=== PATIENT | male | born 1940 | race Caucasian/White ===

== ENCOUNTER → 2016-06-19 | Outpatient (CLI) | payer OTHER ==
[~2016-06-19] MED LIST: CHOLTAB3 PO; GLC500 PO; IBUP-1050 PO
[2016-06-19 13:14] LABS: ESTIMATED AVERAGE GLUCOSE 126 mg/dl; HA1C FLAG Normal (Normal)
[2016-06-19 13:15] LABS: ALT/SGPT 26 U/L (12-78); BLOOD UREA NITROGEN 19 mg/dl (7-18); BUN/CREATININE RATIO 17.2 (10-20); CALCIUM 9.2 mg/dl (8.5-10.1); CARBON DIOXIDE 28 mmol/L (21-32); CHLORIDE 106 mmol/L (98-107); GLUCOSE 128 mg/dl (70-99); POTASSIUM 4.1 mmol/L (3.5-5.1); SODIUM 141 mmol/L (136-145)
[2016-06-19 13:21] LABS: ALB/GLOB RATIO 1.3 (0.9-2); ALKALINE PHOSPHATASE 44 U/L (45-117); AST/SGOT 16 U/L (15-37); CHOLESTEROL 176 mg/dl (0-200); CHOLESTEROL/HDL RATIO 3.5; HDL CHOLESTEROL 51 mg/dl; LDL CHOLESTEROL CALCULATED 100 mg/dl; TRIGLYCERIDES 124 mg/dl (0-150); VERY LOW DENSITY LIPOPROT CALC 25 mg/dl
== END | disposition home or self-care (01) ==
LOC: C.LABPVFM 09:52
PROVIDERS: ATTEND Family Medicine
DX: E78.00 Pure hypercholesterolemia, unspecified (principal); E11.9 Type 2 diabetes mellitus without complications; M79.603 Pain in arm, unspecified

== ENCOUNTER → 2016-06-25 | Outpatient (CLI) | payer OTHER ==
[2016-06-25 18:09] LABS: RATIO 12.1 mcg/mg (0-30.0)
== END | disposition home or self-care (01) ==
LOC: C.LABPVFM 09:07
PROVIDERS: ATTEND Family Medicine
DX: M79.603 Pain in arm, unspecified (principal)

== ENCOUNTER → 2016-07-18 | Outpatient (CLI) | payer OTHER ==
--- NOTE | 2016-07-18 11:08 | DIAGNOSTIC IMAGING REPORT ---
RIGHT FOOT MIN 3 VIEWS ROUTINE CLINICAL HISTORY: ACUTE RT ANKLE PAIN, Right pain COMPARISON: None. DISCUSSION: The bones and joint spaces appear intact. There is no evidence of fracture, dislocation or bony disease. There is no evidence for soft tissue swelling. IMPRESSION: Negative study. Electronically signed by: Caleb Jay M.D. 07/18/2016 11:07 AM Dictated Date/Time: 07/18/2016 11:05 AM
--- NOTE | 2016-07-18 11:10 | DIAGNOSTIC IMAGING REPORT ---
RIGHT ANKLE 3 VIEWS CLINICAL HISTORY: Twisting injury. FINDINGS: 3 views of the right ankle are obtained. No prior studies are available for comparison at the time of dictation. The skeletal structures are osteopenic. No fracture is seen. The ankle mortise is intact. There is a large plantar calcaneal enthesophyte. Degenerative spurring is seen along the dorsal aspect of the tarsal bones. Soft tissue swelling is present around the ankle. No large joint effusion is identified. There is advanced atherosclerotic calcification of the regional arteries. IMPRESSION: Soft tissue swelling with no radiographic evidence of right ankle fracture. Electronically signed by: Wojciech Freed M.D. 07/18/2016 11:09 AM Dictated Date/Time: 07/18/2016 11:08 AM
== END | disposition home or self-care (01) ==
LOC: C.RADPV 10:40
PROVIDERS: ATTEND Nurse Practitioner
DX: M25.571 Pain in right ankle and joints of right foot (principal)

== ENCOUNTER → 2016-08-22 | Outpatient (CLI) | payer OTHER ==
[2016-08-22 17:46] LABS: BASO % 0.4 %; BASO ABS # 0.03 K/uL (0-0.2); COMPLETE YES; EOS % 1.3 %; HEMATOCRIT 41.8 % (42-52); IG% 0.3 %; LYMPH % 8.9 %; LYMPH ABS # 0.61 K/uL (1.2-3.4); MEAN CELL VOLUME 89.9 fL (80-100); MEAN CORPUSCULAR HEMOGLOBIN 32.3 pg (25-34); MEAN CORPUSCULAR HGB CONC 35.9 g/dl (32-36); MEAN PLATELET VOLUME 11.9 fL (7.4-10.4); MONO % 11.3 %; NEUT % 77.8 %; PLATELET COUNT 131 K/uL (130-400); RED BLOOD COUNT 4.65 M/uL (4.7-6.1); WHITE BLOOD COUNT 6.84 K/uL (4.8-10.8)
[2016-08-22 19:27] LABS: LYME DISEASE AB IGG NEG (NEG)
[2016-08-22 19:39] LABS: LYME DISEASE AB IGM POS (NEG)
[2016-08-28 16:05] LABS: 18KDIGG BAND NONREACTIVE (NONREACTIVE); 23KDIGG BAND NONREACTIVE (NONREACTIVE); 23KDIGM BAND REACTIVE (NONREACTIVE); 28KDIGG BAND NONREACTIVE (NONREACTIVE); 30KDIGG BAND NONREACTIVE (NONREACTIVE); 39KDIGG BAND NONREACTIVE (NONREACTIVE); 39KDIGM BAND NONREACTIVE (NONREACTIVE); 41KDIGG BAND REACTIVE (NONREACTIVE); 41KDIGM BAND NONREACTIVE (NONREACTIVE); 45KDIGG BAND REACTIVE (NONREACTIVE); 58KDIGG BAND NONREACTIVE (NONREACTIVE); 66KDIGG BAND REACTIVE (NONREACTIVE); 93KDIGG BAND NONREACTIVE (NONREACTIVE)
== END | disposition home or self-care (01) ==
LOC: C.LABPVFM 16:02
PROVIDERS: ATTEND Nurse Practitioner Family
DX: T14.8 Other injury of unspecified body region (principal); W57.XXXA Bitten or stung by nonvenomous insect and other nonvenomous arthropods, initial encounter

== ENCOUNTER → 2016-12-24 | Outpatient (CLI) | payer OTHER ==
[2016-12-24 13:20] LABS: ALT/SGPT 27 U/L (12-78); BLOOD UREA NITROGEN 21 mg/dl (7-18); BUN/CREATININE RATIO 20.2 (10-20); CALCIUM 8.8 mg/dl (8.5-10.1); CARBON DIOXIDE 26 mmol/L (21-32); CHLORIDE 103 mmol/L (98-107); CHOLESTEROL 171 mg/dl (0-200); CREATININE 1.06 mg/dl (0.60-1.40); ESTIMATED AVERAGE GLUCOSE 131 mg/dl; GLUCOSE 140 mg/dl (70-99); HA1C FLAG Normal (Normal); POTASSIUM 4.1 mmol/L (3.5-5.1); SODIUM 139 mmol/L (136-145)
[2016-12-24 13:23] LABS: ALB/GLOB RATIO 1.2 (0.9-2); ALKALINE PHOSPHATASE 46 U/L (45-117); AST/SGOT 17 U/L (15-37); CHOLESTEROL/HDL RATIO 3.4; HDL CHOLESTEROL 50 mg/dl; LDL CHOLESTEROL CALCULATED 99 mg/dl; TRIGLYCERIDES 110 mg/dl (0-150); VERY LOW DENSITY LIPOPROT CALC 22 mg/dl
== END | disposition home or self-care (01) ==
LOC: C.LABPVFM 09:08
PROVIDERS: ATTEND Family Medicine
DX: C61 Malignant neoplasm of prostate (principal); E11.9 Type 2 diabetes mellitus without complications; E78.00 Pure hypercholesterolemia, unspecified

== ENCOUNTER → 2017-07-01 | Outpatient (CLI) | payer OTHER ==
[2017-07-01 14:12] LABS: ALBUMIN 3.7 gm/dl (3.4-5.0); ALKALINE PHOSPHATASE 45 U/L (45-117); ALT/SGPT 26 U/L (12-78); AST/SGOT 18 U/L (15-37); BLOOD UREA NITROGEN 17 mg/dl (7-18); CALCIUM 8.6 mg/dl (8.5-10.1); CARBON DIOXIDE 27 mmol/L (21-32); CHOLESTEROL 167 mg/dl (0-200); CREATININE 0.98 mg/dl (0.60-1.40); GLUCOSE 117 mg/dl (70-99); LDL CHOLESTEROL CALCULATED 103 mg/dl; POTASSIUM 3.9 mmol/L (3.5-5.1); SODIUM 138 mmol/L (136-145)
== END | disposition home or self-care (01) ==
LOC: C.LABPVFM 09:44
PROVIDERS: ATTEND Family Medicine
DX: E11.9 Type 2 diabetes mellitus without complications (principal); E78.00 Pure hypercholesterolemia, unspecified; M25.519 Pain in unspecified shoulder; R03.0 Elevated blood-pressure reading, without diagnosis of hypertension

== ENCOUNTER → 2017-09-26 | Outpatient (CLI) | payer OTHER ==
--- NOTE | 2017-09-26 15:17 | DIAGNOSTIC IMAGING REPORT ---
CERVICAL SPINE 2 OR 3 VIEWS CLINICAL HISTORY: Neck pain following injury. COMPARISON STUDY: No previous studies for comparison. FINDINGS: Alignment of the cervical spine is anatomic. Vertebral body heights are maintained. No fracture or osseous lesion is noted. There is moderate disc space narrowing at C6-C7. There is mild to moderate disc space narrowing at C5-C6. Moderate multilevel facet arthrosis is noted. There is anterior osteophytosis at several levels. IMPRESSION: 1. No acute cervical spine fracture or subluxation. 2. Moderate multilevel degenerative disc disease and facet arthrosis within the cervical spine. Electronically signed by: Davon Sosa M.D. 09/26/2017 3:16 PM Dictated Date/Time: 09/26/2017 3:14 PM
== END | disposition home or self-care (01) ==
LOC: C.RADPV 14:35
PROVIDERS: ATTEND Family Medicine
DX: M50.30 Other cervical disc degeneration, unspecified cervical region (principal)

== ENCOUNTER 2021-05-02 11:50 | Inpatient (IN) ==
[2021-05-02] MEDS ORDERED: NITROGLYCERIN 2% OINTMENT 30GM TUBE EXT STA (12:16)
[2021-05-02] MEDS ORDERED: ASPIRIN CHEW 324 MG PO STA (12:16)
--- NOTE | 2021-05-02 12:21 | Emergency Department Note ---
Impression & Plan Precordial chest pain, Exertional chest pain, SOB (shortness of breath) ED Provider Note NAME: TEQUILA HICKMAN AGE: 81 SEX: M : 1940 ARRIVES VIA: Walk-In INFORMANT: [Patient] ED PROVIDER(S): [Wojciech Gant MD] CHIEF COMPLAINT: Chest pain HISTORY OF PRESENT ILLNESS: The patient is an 81-year-old male with no known coronary disease. The patient presents with a week or so of exertional chest discomfort and some exertional dyspnea. His symptoms get better with rest. Yesterday he had a 5 to 10-minute episode that was better when he rested. Today, he began having some chest discomfort with exertion but it has not completely gone away. The pain has been with him all morning. The pain is a 2 or 3 on a scale of 1-10. There has been no sweating, no nausea. No cough or cold or congestion. Patient went to [facility], he was referred to the ED because of his complaints. REVIEW OF SYSTEMS: See HPI for pertinent positives and negatives. A total of ten systems were reviewed and were otherwise negative. PMHx/PSHx: See Below SOCIAL HISTORY: See Below. PHYSICAL EXAM: GENERAL: Patient is in no acute distress. HEENT: No acute trauma, normocephalic atraumatic, mucous membranes moist, no nasal congestion, no scleral icterus. NECK: No stridor, no adenopathy, no meningismus, trachea is midline. LUNGS: Clear to auscultation bilaterally, no wheeze, no rhonchi, breath sounds equal. HEART: Without murmurs gallops or rubs, regular rate and rhythm. ABDOMEN: Soft, nontender, bowel sounds positive, no hernias, no peritonitis. EXTREMITIES: No cyanosis, mild bilateral pedal edema, full range of motion of all the joints without pain or difficulty, no signs for acute trauma. NEUROLOGIC: Oriented x 3, no acute motor or sensory deficits, no focal weakness. SKIN: No rash, no jaundice, no diaphoresis. DIFFERENTIAL DIAGNOSIS: Cardiac ischemia, aortic dissection, pulmonary embolism, pneumothorax, pneumon ia, pericarditis, myocarditis, esophageal rupture, GERD, cholecystitis, pancreatitis, musculoskeletal, as well as other pathologies. EMERGENCY DEPARTMENT COURSE/PROCEDURES: ECG: Indication was chest pain. ECG shows a normal sinus rhythm with a rate of 70. There is some baseline artifact. No ST elevation, no PVCs. The QTc is 406. Continuous Cardiac Monitoring: An order was placed for continuous cardiac monitoring. The monitor shows a rate of 71 with normal sinus rhythm. MEDICAL DECISION MAKING: There is no leukocytosis or concerning anemia. There is a normal platelet count. No coagulopathy. No significant electrolyte abnormality or kidney failure. No concerning liver enzyme elevation. No evidence for pancreatitis. Covid testing returned negative. Chest x-ray did not show mediastinal widening, pneumonia or pneumothorax. ECG shows a normal sinus rhythm, no obvious ischemia. Cardiac enzyme testing x1 is not consistent with acute cardiac injury. The patient presents with some exertional chest pain. His pain was a bit worse today as it would not resolve with rest. The patient was given nitroglycerin paste, oral aspirin. He is now pain-free. The patient presents with exertional chest discomfort. He requires further cardiac work-up. I did speak with the patient and case management. The on-call hospitalist was consulted. Past Med/Surg History Medical History Arthritis of both ankles Chronic back pain Degenerative disc disease Diabetes mellitus, type 2 Difficult airway for intubation used glidescope to intubate patient while in [facility]. (~2009) advised to bring letter. GERD (gastroesophageal reflux disease) occasionally History of brachytherapy Osteoarthritis Prostate cancer Spinal stenosis Unsteady gait Vertigo Surgical History History of colonoscopy History of hernia repair left inguinal History of left cataract surgery History of prostate surgery cryo ablation [facility] History of tonsillectomy Family History Father Myocardial infarction Other No family history of adverse response to anesthesia Denies family history of Ovarian cancer Prostate cancer Breast cancer Colorectal cancer Social History Smoking Status: Never smoker Second Hand Exposure: No; Hx Alcohol Use: No Hx Substance Use: No Preferred Language: Icelandic Communication Ability: Effective Brush Maker Machine Required: No Beliefs That Will Affect Care: None marital status: Current Living Situation: Spouse Feels Safe at Home: Yes Dental Care, Regularly: Yes Seatbelt Use: always Assistive Devices: Glasses Allergies Allergies Allergy/AdvReac Type Severity Reaction Status Date / Time Sulfa (Sulfonamide Allergy Intermediate Rash, Verified 05/02/21 14:51 Antibiotics) fever, sweat meloxicam AdvReac Intermediate swelling Verified 05/02/21 14:51 of limbs Home Meds Home Medications Medication Instructions Recorded Confirmed cholecalciferol (vitamin D3) 10 400 unit PO BID 12/15/19 05/02/21 mcg (400 unit) tablet (Vitamin D3) Previous Rx's Medication Instructions Recorded pantoprazole 20 mg tablet,delayed 20 mg PO DAILY 30 Days #30 tab 07/08/20 release metformin 500 mg tablet,extended 500 mg PO BID #180 tab 04/24/21 release 24 hr Results & Data (ED) Vital Signs Vital Signs - 24 hr 05/02/21 11:57 05/02/21 12:50 05/02/21 13:13 Temperature 36.7 C Temperature Source Temporal Artery Scan Pulse Rate 71 62 Pulse Rate from SpO2 Sensor 63 Respiratory Rate 18 14 Respiratory Effort / Characteristics Non-Labored Spontaneous Respiratory Depth Normal Respiratory Pattern Regular Blood Pressure 200/91 H Blood Pressure Mean 127 Pulse Oximetry 99 95 98 Oxygen Delivery Method Room Air Room Air Oxygen Flow Rate 0 Sepsis Recent Fever Within 48 Hours No Sepsis New/Unexplained Change in Mental Status No Sepsis Action Taken by Nursing No Action Required 05/02/21 13:15 05/02/21 13:25 05/02/21 13:30 Temperature Temperature Source Pulse Rate 61 64 61 Pulse Rate from SpO2 Sensor 60 64 62 Respiratory Rate 16 14 13 Respiratory Effort / Characteristics Respiratory Depth Respiratory Pattern Blood Pressure 166/87 H 166/87 H 159/80 H Blood Pressure Mean 113 113 106 Pulse Oximetry 98 98 97 Oxygen Delivery Method Oxygen Flow Rate Sepsis Recent Fever Within 48 Hours Sepsis New/Unexplained Change in Mental Status Sepsis Action Taken by Nursing 05/02/21 13:45 05/02/21 14:00 05/02/21 14:15 Temperature Temperature Source Pulse Rate 63 63 64 Pulse Rate from SpO2 Sensor 63 63 64 Respiratory Rate 13 17 4 L Respiratory Effort / Characteristics Respiratory Depth Respiratory Pattern Blood Pressure 183/85 H 165/85 H 169/88 H Blood Pressure Mean 117 111 115 Pulse Oximetry 97 97 96 Oxygen Delivery Method Oxygen Flow Rate Sepsis Recent Fever Within 48 Hours Sepsis New/Unexplained Change in Mental Status Sepsis Action Taken by Nursing 05/02/21 14:30 05/02/21 14:45 05/02/21 15:00 Temperature Temperature Source Pulse Rate 64 63 71 Pulse Rate from SpO2 Sensor 64 63 70 Respiratory Rate 17 20 13 Respiratory Effort / Characteristics Respiratory Depth Respiratory Pattern Blood Pressure 171/88 H 155/87 H 187/102 H Blood Pressure Mean 115 109 130 Pulse Oximetry 97 97 99 Oxygen Delivery Method Oxygen Flow Rate Sepsis Recent Fever Within 48 Hours Sepsis New/Unexplained Change in Mental Status Sepsis Action Taken by Nursing 05/02/21 15:15 05/02/21 15:30 05/02/21 15:45 Temperature Temperature Source Pulse Rate 74 69 62 Pulse Rate from SpO2 Sensor 74 71 64 Respiratory Rate 18 16 Respiratory Effort / Characteristics Respiratory Depth Respiratory Pattern Blood Pressure 187/99 H 127/72 135/74 Blood Pressure Mean 128 90 94 Pulse Oximetry 98 95 97 Oxygen Delivery Method Oxygen Flow Rate Sepsis Recent Fever Within 48 Hours Sepsis New/Unexplained Change in Mental Status Sepsis Action Taken by Nursing 05/02/21 16:00 05/02/21 16:15 05/02/21 16:30 Temperature Temperature Source Pulse Rate 62 62 61 Pulse Rate from SpO2 Sensor 65 Respiratory Rate 11 L 13 15 Respiratory Effort / Characteristics Respiratory Depth Respiratory Pattern Blood Pressure 141/72 H 137/70 146/70 H Blood Pressure Mean 95 92 95 Pulse Oximetry 97 Oxygen Delivery Method Oxygen Flow Rate Sepsis Recent Fever Within 48 Hours Sepsis New/Unexplained Change in Mental Status Sepsis Action Taken by Nursing 05/02/21 16:45 05/02/21 17:00 05/02/21 17:15 Temperature Temperature Source Pulse Rate 64 74 63 Pulse Rate from SpO2 Sensor 75 65 Respiratory Rate 20 20 10 L Respiratory Effort / Characteristics Respiratory Depth Respiratory Pattern Blood Pressure 139/91 169/90 H 147/76 H Blood Pressure Mean 107 116 99 Pulse Oximetry 97 97 Oxygen Delivery Method Oxygen Flow Rate Sepsis Recent Fever Within 48 Hours Sepsis New/Unexplained Change in Mental Status Sepsis Action Taken by Nursing 05/02/21 18:00 Temperature Temperature Source Pulse Rate Pulse Rate from SpO2 Sensor Respiratory Rate Respiratory Effort / Characteristics Respiratory Depth Respiratory Pattern Blood Pressure Blood Pressure Mean Pulse Oximetry Oxygen Delivery Method Room Air Oxygen Flow Rate Sepsis Recent Fever Within 48 Hours Sepsis New/Unexplained Change in Mental Status Sepsis Action Taken by [facility] Medications Current Medication List: was personally reviewed by me Laboratory Data Attestation: I reviewed the patient's lab results. Result diagrams: 05/02/21 12:50 05/02/21 12:50 Lab Results 05/02/21 05/02/21 05/02/21 Range/Units 12:50 12:50 12:50 WBC 9.14 (4.8-10.8) K/uL RBC 4.65 L (4.7-6.1) M/uL Hgb 15.1 (14.0-18.0) g/dL Hct 41.9 L (42-52) % MCV 90.1 (80-100) fL MCH 32.5 (25-34) pg MCHC 36.0 (32-36) g/dL RDW Std Deviation 42.0 (36.4-46.3) fL RDW Coeff of Nadiya 12.7 (11.5-14.5) % Plt Count 156 (130-400) K/uL MPV 10.9 H (7.4-10.4) fL Immature Gran % (Auto) 0.2 % Neut % (Auto) 86.6 % Lymph % (Auto) 7.4 % [place] % (Auto) 5.4 % Eos % (Auto) 0.3 % Baso % (Auto) 0.1 % Neut # (Auto) 7.91 H (1.4-6.5) K/uL Lymph # (Auto) 0.68 L (1.2-3.4) K/uL [place] # (Auto) 0.49 (0.11-0.59) K/uL Eos # (Auto) 0.03 (0-0.5) K/uL Baso # (Auto) 0.01 (0-0.2) K/uL Immature Gran # (Auto) 0.02 (0.00-0.02) K/uL PT 11.3 (9.0-12.0) Seconds INR 1.1 (0.9-1.1) APTT 27.3 (21.0-31.0) Seconds PTT Ratio 1.0 Sodium 138 (136-145) mmol/L Potassium 3.9 (3.5-5.1) mmol/L Chloride 103 (98-107) mmol/L Carbon Dioxide 26 (21-32) mmol/L Anion Gap 9 (3-11) BUN 22 (6-23) mg/dl Creatinine 0.96 (0.6-1.4) mg/dl Est Cr Clr Drug Dosing Not Reportable Est GFR ( Amer) 85.6 ml/min Est GFR (Non-Af Amer) 73.8 ml/min BUN/Creatinine Ratio 22.9 H (10-20) Glucose 160 H (70-99(Fasting)) mg/dl Calcium 9.2 (8.5-10.1) mg/dl Magnesium 2.0 (1.7-2.4) mg/dl Total Bilirubin 0.7 (0.2-1.0) mg/dl AST 17 (13-39) U/L ALT 19 (7-52) U/L Alkaline Phosphatase 44 (34-104) U/L Troponin I < 0.03 (0-0.04) ng/ml Total Protein 7.3 (6.0-8.3) gm/dl Albumin 4.7 (3.4-5.0) gm/dl Globulin 2.6 (2.5-4.0) gm/dl Albumin/Globulin Ratio 1.8 (0.9-2) Lipase 21 (11-82) U/L SARS-CoV-2, RNA, NAAT (NEGATIVE) 05/02/21 Range/Units 12:50 WBC (4.8-10.8) K/uL RBC (4.7-6.1) M/uL Hgb (14.0-18.0) g/dL Hct (42-52) % MCV (80-100) fL MCH (25-34) pg MCHC (32-36) g/dL RDW Std Deviation (36.4-46.3) fL RDW Coeff of Nadiya (11.5-14.5) % Plt Count (130-400) K/uL MPV (7.4-10.4) fL Immature Gran % (Auto) % Neut % (Auto) % Lymph % (Auto) % [place] % (Auto) % Eos % (Auto) % Baso % (Auto) % Neut # (Auto) (1.4-6.5) K/uL Lymph # (Auto) (1.2-3.4) K/uL [place] # (Auto) (0.11-0.59) K/uL Eos # (Auto) (0-0.5) K/uL Baso # (Auto) (0-0.2) K/uL Immature Gran # (Auto) (0.00-0.02) K/uL PT (9.0-12.0) Seconds INR (0.9-1.1) APTT (21.0-31.0) Seconds PTT Ratio Sodium (136-145) mmol/L Potassium (3.5-5.1) mmol/L Chloride (98-107) mmol/L Carbon Dioxide (21-32) mmol/L Anion Gap (3-11) BUN (6-23) mg/dl Creatinine (0.6-1.4) mg/dl Est Cr Clr Drug Dosing Est GFR ( Amer) ml/min Est GFR (Non-Af Amer) ml/min BUN/Creatinine Ratio (10-20) Glucose (70-99(Fasting)) mg/dl Calcium (8.5-10.1) mg/dl Magnesium (1.7-2.4) mg/dl Total Bilirubin (0.2-1.0) mg/dl AST (13-39) U/L ALT (7-52) U/L Alkaline Phosphatase (34-104) U/L Troponin I (0-0.04) ng/ml Total Protein (6.0-8.3) gm/dl Albumin (3.4-5.0) gm/dl Globulin (2.5-4.0) gm/dl Albumin/Globulin Ratio (0.9-2) Lipase (11-82) U/L SARS-CoV-2, RNA, NAAT NEGATIVE (NEGATIVE) Administered Medications Discontinued Medications Aspirin (Aspirin Chew 324 Mg) 324 mg PO NOW STA Stop: 05/02/21 12:17 Last Admin: 05/02/21 12:54 Dose: 324 mg Documented by: [id number] Metoprolol Tartrate (Metoprolol Tartrate 50 Mg Tab) 12.5 mg PO NOW STA Stop: 05/02/21 15:24 Last Admin: 05/02/21 17:11 Dose: 12.5 mg Documented by: [id number] Nitroglycerin (Nitroglycerin 2% Ointment 30gm Tube) 1 inch EXT NOW STA Stop: 05/02/21 12:17 Last Admin: 05/02/21 12:53 Dose: 1 inch Documented by: [id number] Nitroglycerin (Nitroglycerin Sl 0.4 Mg/Tab Tab) 0.4 mg SL NOW STA Stop: 05/02/21 15:09 Last Admin: 05/02/21 15:18 Dose: 0.4 mg Documented by: [id number] Imaging Data Radiologist's Impression: Chest X-Ray 05/02/21 12:16 XR chest 1V portable CLINICAL HISTORY: Atypical chest pain TECHNIQUE: Single frontal radiograph of the chest was obtained. Comparison: None available at the time of this dictation. FINDINGS: No lines and tubes are seen. The cardiomediastinal silhouette is normal. The lungs are clear. No evidence of pleural effusion or pneumothorax. IMPRESSION: No acute chest disease. ACT 112: Negative or not required by law. Electronically signed by: Leon Fernandez M.D. 05/02/2021 12:36 PM Discharge Plan Visit Data Chief Complaint: Chest Pain Stated Complaint: CHEST PAIN ED Provider: Wojciech Gant Discharge Problem: Precordial chest pain, Exertional chest pain, SOB (shortness of breath) Patient Disposition: Admitted As Inpatient Condition: Good Discharge Instructions Interventions: ED Discharge Assessment Last Done: 05/02/21 18:00 Forms Stand Alone Forms: [facility] [place] Prescriptions Prescriptions: No Action metformin 500 mg tablet extended release 24 hr 500 mg PO BID Qty: 180 RF: 1 pantoprazole 20 mg tablet,delayed release (DR/EC) 20 mg PO DAILY 30 Days Qty: 30 RF: 3 cholecalciferol (vitamin D3) [Vitamin D3] 10 mcg (400 unit) Tablet 400 unit PO BID RF: 0 Referrals Referrals: Rosita Lind MD [Primary Care Provider] -
--- NOTE | 2021-05-02 12:37 | XRay Report ---
XR chest 1V portable CLINICAL HISTORY: Atypical chest pain TECHNIQUE: Single frontal radiograph of the chest was obtained. Comparison: None available at the time of this dictation. FINDINGS: No lines and tubes are seen. The cardiomediastinal silhouette is normal. The lungs are clear. No evid ence of pleural effusion or pneumothorax. IMPRESSION: No acute chest disease. ACT 112: Negative or not required by law. Electronically signed by: Leon Fernandez M.D. 05/02/2021 12:36 PM
[2021-05-02 13:06] LABS: Basophils # (auto) 0.01 K/uL (0-0.2); Basophils % (auto) 0.1 %; Eosinophils # (auto) 0.03 K/uL (0-0.5); Eosinophils % (auto) 0.3 %; Hematocrit (blood only) 41.9 % (42-52); Hemoglobin 15.1 g/dL (14.0-18.0); Immature Granulocytes # (auto) 0.02 K/uL (0.00-0.02); Immature Granulocytes % (auto) 0.2 %; Lymphocytes # (auto) 0.68 K/uL (1.2-3.4); Lymphocytes % (auto) 7.4 %; Mean Corpuscular Hemoglobin 32.5 pg (25-34); Mean Corpuscular Volume 90.1 fL (80-100); Mean Platelet Volume 10.9 fL (7.4-10.4); Monocytes # (auto) 0.49 K/uL (0.11-0.59); Monocytes % (auto) 5.4 %; Neutrophils # (auto) 7.91 K/uL (1.4-6.5); Neutrophils % (auto) 86.6 %; Platelet Count 156 K/uL (130-400); RDW Coefficient of Variation 12.7 % (11.5-14.5); Red Blood Count 4.65 M/uL (4.7-6.1); White Blood Count 9.14 K/uL (4.8-10.8)
[2021-05-02 13:17] LABS: INR 1.1 (0.9-1.1); Partial Thromboplastin Time 27.3 Seconds (21.0-31.0); Prothrombin Time 11.3 Seconds (9.0-12.0)
[2021-05-02 13:29] LABS: Troponin I < 0.03 ng/ml (0-0.04)
[2021-05-02 13:34] LABS: Alanine Aminotransferase 19 U/L (7-52); Albumin Globulin Ratio 1.8 (0.9-2); Albumin Level 4.7 gm/dl (3.4-5.0); Alkaline Phosphatase 44 U/L (34-104); Anion Gap 9 (3-11); Aspartate Aminotransferase 17 U/L (13-39); BUN Creatinine Ratio 22.9 (10-20); Bilirubin,Total 0.7 mg/dl (0.2-1.0); Blood Urea Nitrogen 22 mg/dl (6-23); Calcium 9.2 mg/dl (8.5-10.1); Carbon Dioxide 26 mmol/L (21-32); Chloride 103 mmol/L (98-107); Est GFR (African American) 85.6 ml/min; Est GFR (Non-African American) 73.8 ml/min; Globulin 2.6 gm/dl (2.5-4.0); Glucose 160 mg/dl (70-99(Fasting)); Lipase 21 U/L (11-82); Potassium 3.9 mmol/L (3.5-5.1); Sodium 138 mmol/L (136-145); Total Protein 7.3 gm/dl (6.0-8.3)
[2021-05-02] MEDS ORDERED: NITROGLYCERIN SL 0.4 MG/TAB TAB SL STA (15:08)
[2021-05-02] MEDS ORDERED: METOPROLOL TARTRATE 50 MG TAB PO STA (15:23)
--- NOTE | 2021-05-02 15:37 | History & Physical Report ---
Date of Service May 02, 2021 Assessment & Plan (1) Angina pectoris, unspecified: Plan: Chest pressure occurring with activity- reports not consistent with his GERD symptoms - Pain remained with NTP- given SL NTG - Pain 0.5-1 following NTG - PRN NTG available - ASA 81mg daily - ECG last one on file for comparison is from 2002- changed from that time - Trend Troponin and ECG - ECHO - pending troponin and ECGs- further risk stratify in AM- Cards consulted - Start Metoprolol 12.5 mg PO now and BID- reduce his double product Note potential for adverse reactions with heparin- Heparin infusion- he endorses both father and son following Heparin administration- one with clots/and the other with bleeding. (2) HTN (hypertension): Plan: Poorly controlled as outpatient - As above start Metoprolol now - May need PRN overnight if CP not resolving or returns with HTN - Would likely benefit from LARA or ARB as well (3) Hypercholesterolemia: Plan: Lipid panel in the morning not on statin - He reports that he may have had a reaction to this in the past (4) DM (diabetes mellitus), type 2: Plan: On Metformin at home - HGB A1C in the am - Transition to sliding scale while here- Aspart CF: 20 with Ration 1:15 (5) GERD without esophagitis: Plan: Continue Omeprazole (6) Spinal stenosis: Plan: Chronic follows with Dr. Morris - No acute issues (7) Sciatica of left side: Plan: Stable as above (8) Vertigo: Plan: Patient reports that he has had this ever since he was a kid - Can not lay flat without his hat on - Again unsure if any pathology here- (9) H/O prostate cancer: Plan: Treated with seeds 2002- follows with urology - patient doesn't endorse any LUTS History of Present Illness Primary Care Provider: Rosita Lind MD 81 YOM with past medical history of: Back pain, Vertigo, Arthritis, DM II, HLD, HTN, GERD, Prostate Cancer (adenocarcinoma- cryotherapy). Patient comes to the EMD today for complaints of chest pressure. The "pressure" started this morning around 10-1030 while he was carrying a bucket of water outside to empty it and upon returning to the house he felt pressure in the center of his chest that radiated to his back between his shoulder blades. This was present upon ent ering the EMD and while walking into the EMD this pressure got slightly worse. At worst the pain was 5 and is now 2-3. Currently without radiation to the back. It was not associated with any other radiation, nausea/vomiting, sweating, or dyspnea. He had this occur one other time, during the last snow storm (Beginning of April) where he was sweeping the snow outside. This was the same pain in the center of his chest and that resolved after he went inside and rested. He may have this occur when he is going up steps, but he is unsure of this. He did note that he was able to go up and down a ladder this past week and remove some stuff from the roof/gutter without any chest pain or pressure, and he did carry the ladder back in the garage. In the EMD the patient had routine labs performed to include Troponin I and ECG/CXR. His Troponin I was negative and his ECG is negative for dynamic ST changes. He was given 324 mg ASA and had NTG paste placed to his chest. This decreased his pain to 2-3 but did not relieve it. On my evaluation- NTP removed and given 1 SL nitroglycerin. He remains significantly hypertensive and his BP by review is poorly controlled. Will admit patient to PCU telemetry, trend Troponin, give Metoprolol 12.5mg PO now and then BID. Check lipids in morning with HGB A1c, ECHO to evaluate for RWMA, Cardiology consult for risk stratification. Patient has not followed by Cardiology in the past- He did have a stress test completed in 2001 secondary to ? PVCs and HTN- Patient states this occurred after starting some medication, but he can't recall. Patient has never smoked, and has never drank. 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 He also endorses family history of his Father and Son both having and ADVERSE REACTION to Heparin- one with clots and dying and the other with bleeding out. They are unsure of any other family history of clotting or bleeding disorder. Will provide SCDs for VTE. Allergies Allergy/AdvReac Type Severity Reaction Status Date / Time Sulfa (Sulfonamide Allergy Intermediate Rash, Verified 05/02/21 14:51 Antibiotics) fever, sweat meloxicam AdvReac Intermediate swelling Verified 05/02/21 14:51 of limbs Home Medications Medication Instructions Recorded Confirmed Type cholecalciferol (vitamin D3) 10 400 unit PO BID 12/15/19 05/02/21 History mcg (400 unit) tablet (Vitamin D3) pantoprazole 20 mg tablet,delayed 20 mg PO DAILY 30 Days #30 tab 07/08/20 05/02/21 Rx release metformin 500 mg tablet,extended 500 mg PO BID #180 tab 04/24/21 05/02/21 Rx release 24 hr Past Med/Surg History Medical History (Updated 05/02/21 @ 15:58 by MANI [place]) Arthritis of both ankles Chronic back pain Degenerative disc disease Diabetes mellitus, type 2 Difficult airway for intubation used glidescope to intubate patient while in [facility]. (~2009) advised to bring letter. GERD (gastroesophageal reflux disease) occasionally History of brachytherapy Osteoarthritis Prostate cancer Spinal stenosis Unsteady gait Vertigo Surgical History History of colonoscopy History of hernia repair left inguinal History of left cataract surgery History of prostate surgery cryo ablation [facility] History of tonsillectomy Family History Father Myocardial infarction Other No family history of adverse response to anesthesia Denies family history of Ovarian cancer Prostate cancer Breast cancer Colorectal cancer Social History Smoking Status: Never smoker Second Hand Exposure: No; Hx Alcohol Use: No Hx Substance Use: No Preferred Language: Iranian Communication Ability: Effective Qa Architect Required: No Beliefs That Will Affect Care: None marital status: Current Living Situation: Spouse Feels Safe at Home: Yes Dental Care, Regularly: Yes Seatbelt Use: always Assistive Devices: Glasses Review of Systems Review of Systems: REVIEW OF SYSTEMS: Constitutional: No fever, sweats or chills Eyes: No diplopia, no worsening or blurred vision ENT: normal hearing, no trouble swallowing Respiratory: No cough, sputum, dyspnea at rest or on exertion Cardiovascular: (+) chest pain, tightness., NO palpitations Abdomen: No pain, nausea, vomiting, diarrhea or constipation Musculoskeletal: (+) chronic back and ankle joint pain, sciatica Neurologic: No weakness, numbness/tingling, or balance problems Psychiatric: No anxiety or depression Skin: No rash or itch Physical Exam Physical Exam: PHYSICAL EXAM: General: awake, alert, no apparent distress Head: Normocephalic, atraumatic ENT: PERRL, EOMI, no pharyngeal exudate, mucous membranes moist Neuro: AAO x 3, speech clear and appropriate, strength intact bilaterally 5/5, sensation intact and equal all extremities and dermatomes, no pronator drift Chest: equal rise and fall of the chest, no accessory muscle use, no heaves or thrills, Clear to auscultation, on room air, Cardiac: Regular rate and rhythm, telemetry reviewed- NSR, skin warm dry, cap refill <3 seconds, peripheral pulses +2 no JVD, no murmur, trace lower extremity edema GI: NABS x 4 quadrants, soft, nontender to palpation, no rebound, guarding or tenderness : Spontaneously voiding, no pain, no CVA tenderness, Extremities: Normal inspection, no peripheral edema or erythema, calfs nontender to palpation Psych: Normal mood and affect Skin: no rash or erythema Results & Data Results & Data ([facility]) Vital Signs (Past 12 Hours) Vital Signs Temp Pulse Resp BP Pulse Ox 05/02/21 15:15 74 18 187/99 H 98 05/02/21 15:00 71 13 187/102 H 99 05/02/21 14:45 63 20 155/87 H 97 05/02/21 14:30 64 17 171/88 H 97 05/02/21 14:15 64 4 L 169/88 H 96 05/02/21 14:00 63 17 165/85 H 97 05/02/21 13:45 63 13 183/85 H 97 05/02/21 13:30 61 13 159/80 H 97 05/02/21 13:25 64 14 166/87 H 98 05/02/21 13:15 61 16 166/87 H 98 05/02/21 13:13 62 14 98 05/02/21 12:50 95 05/02/21 11:57 36.7 C 71 18 200/91 H 99 Laboratory Results Abnormal lab results 05/02/21 05/02/21 Range/Units 12:50 12:50 RBC 4.65 L (4.7-6.1) M/uL Hct 41.9 L (42-52) % MPV 10.9 H (7.4-10.4) fL Neut # (Auto) 7.91 H (1.4-6.5) K/uL Lymph # (Auto) 0.68 L (1.2-3.4) K/uL BUN/Creatinine Ratio 22.9 H (10-20) Glucose 160 H (70-99(Fasting)) mg/dl Diagnostic Findings Chest X-Ray 05/02/21 12:16 XR chest 1V portable CLINICAL HISTORY: Atypical chest pain TECHNIQUE: Single frontal radiograph of the chest was obtained. Comparison: None available at the time of this dictation. FINDINGS: No lines and tubes are seen. The cardiomediastinal silhouette is normal. The lungs are clear. No evidence of pleural effusion or pneumothorax. IMPRESSION: No acute chest disease. ACT 112: Negative or not required by law. Electronically signed by: Leon Fernandez M.D. 05/02/2021 12:36 PM Medications Administered Home Medications cholecalciferol (vitamin D3) 10 mcg (400 unit) tablet (Vitamin D3) 400 unit PO BID 12/15/19 [History Confirmed 05/02/21] pantoprazole 20 mg tablet,delayed release 20 mg PO DAILY 30 Days #30 tab 07/08/20 [Rx Confirmed 05/02/21] metformin 500 mg tablet,extended release 24 hr 500 mg PO BID #180 tab 04/24/21 [Rx Confirmed 05/02/21] Discontinued Medications Aspirin (Aspirin Chew 324 Mg) 324 mg PO NOW STA Stop: 05/02/21 12:17 Last Admin: 05/02/21 12:54 Dose: 324 mg Documented by: [id number] Nitroglycerin (Nitroglycerin 2% Ointment 30gm Tube) 1 inch EXT NOW STA Stop: 05/02/21 12:17 Last Admin: 05/02/21 12:53 Dose: 1 inch Documented by: [id number] Nitroglycerin (Nitroglycerin Sl 0.4 Mg/Tab Tab) 0.4 mg SL NOW STA Stop: 05/02/21 15:09 Last Admin: 05/02/21 15:18 Dose: 0.4 mg Documented by: [id number] ECG Additional Comments: Normal sinus rhythm Possible Anterior infarct , age undetermined Abnormal ECG When compared with ECG of 12-MAY-2002 14:00, Borderline criteria for Anterior infarct are now Present Nonspecific T wave abnormality now evident in Anterior leads Code Status & VTE Plan Code Status CODE: FULL VTE: SCDs VTE Prophylaxis Plan VTE Prophylaxis will be ordered: Yes Supervising Physician Co-Signing Physician Notes DISK AND TAPE MACHINE TENDER Supervision note: I have personally seen and examined the patient and discussed and verified the jenkins points of the history and physical along with the plan with MANI Worthy with the following exceptions and/or additions: This patient is a 81-year-old male has been having exertional chest pain for the last week that goes away with rest. It is associated with shortness of breath and profound fatigue sensation. He does also report that he recently switched to a generic form of his PPI, but this was happening prior to that switch as well. History and ROS reviewed as above Vitals reviewed Gen: AAOx3, NAD HEENT: Anicteric sclerae, EOMI CV: RRR no mgr nl S1S2 Pulm: CTAB no wcr Abd: +BS soft NT ND no masses or hernias Ext: No edema Skin: No rashes, warm/dry Neuro: Full strength throughout Labs and rads reviewed, ECG reviewed 81-year-old male here with typical angina with risk factors of age, gender, diabetes, hypertension. Admit to cardiac risk stratify, trend troponin, ECGs Recommend stress test if work-up normal including rest echo. He is a little bit fearful of having any invasive procedures due to his son passing away in the hospital as well as his father in the past after having procedures. PG Care Time/CCT Total # of Minutes Spent Total Time Spent with Patient: Total time spent is greater than 50% in coordination of care (as documented) at patient's floor/unit and/or counseling patient: Coding Level of Care Code 93555 Initial Inpt Care Lvl 3 Diagnoses Angina pectoris, unspecified I20.9 GERD without esophagitis K21.9 Spinal stenosis M48.00 Spinal region: lumbar Sciatica of left side M54.32 Vertigo R42 DM (diabetes mellitus), type 2 E11.9 Diabetes mellitus complication status: without complication Diabetes mellitus exterminator termite insulin use: without exterminator termite use H/O prostate cancer Z85.46 Hypercholesterolemia E78.00 HTN (hypertension) I10 (1) DM (diabetes mellitus), type 2 Diabetes mellitus complication status: without complication Diabetes mellitus exterminator termite insulin use: without fci use Qualified Code(s): E11.9 - Type 2 diabetes mellitus without complications (2) Spinal stenosis Spinal region: lumbar
--- NOTE | 2021-05-02 16:12 | Electrocardiogram Report ---
Test Reason : Blood Pressure : / mmHG Vent. Rate : 070 BPM Atrial Rate : 070 BPM P-R Int : 176 ms QRS Dur : 084 ms QT Int : 376 ms P-R-T Axes : -07 032 013 degrees QTc Int : 406 ms Normal sinus rhythm When compared with ECG of 12-MAY-2002 14:00, Nonspecific T wave abnormality now evident in Anterior leads Confirmed by Scooter Armstrong ([id number]) on 05/02/2021 4:12:15 PM Referred By: REFERRED SELF Confirmed By:Gt Armstrong
[2021-05-02] MEDS ORDERED: ONDANSETRON INJ 2 MG/ML 2 ML VIAL IV PRN (18:47)
[2021-05-02] MEDS ORDERED: ACETAMINOPHEN 325 MG TAB PO PRN (18:47)
[2021-05-02] MEDS ORDERED: DEXTROSE 50% 50 ML SYRINGE IV PRN (18:47)
[2021-05-02] MEDS ORDERED: GLUCOSE 10 TABS/TUBE PO PRN (18:47)
[2021-05-02] MEDS ORDERED: GLUCOSE 40% GEL 15 GM TUBE PO PRN (18:47)
[2021-05-02] MEDS ORDERED: NITROGLYCERIN SL 0.4 MG/TAB TAB SL PRN (18:47)
[2021-05-02] MEDS ORDERED: GLUCAGON FOR INJ 1 MG VIAL SQ PRN (18:47)
[2021-05-02] MEDS ORDERED: CARBOHYDRATES FOR HYPOGLYCEMIA PO PRN (18:47)
[2021-05-02] MEDS: INSULIN ASPART PER UNIT SC SCH (20:44)
[2021-05-02] MEDS ORDERED: METOPROLOL TARTRATE 25 MG TAB PO SCH (21:00)
[2021-05-03] MEDS: ASPIRIN 81 MG ECTAB PO SCH (07:27)
[2021-05-03] MEDS: PANTOprazole 40 MG TAB PO SCH (07:27)
[2021-05-03 07:28] LABS: Basophils # (auto) 0.01 K/uL (0-0.2); Basophils % (auto) 0.1 %; Eosinophils # (auto) 0.03 K/uL (0-0.5); Eosinophils % (auto) 0.4 %; Hematocrit (blood only) 40.6 % (42-52); Hemoglobin 13.9 g/dL (14.0-18.0); Immature Granulocytes # (auto) 0.02 K/uL (0.00-0.02); Immature Granulocytes % (auto) 0.3 %; Lymphocytes # (auto) 0.99 K/uL (1.2-3.4); Lymphocytes % (auto) 12.9 %; Mean Corpuscular Hemoglobin 31.2 pg (25-34); Mean Corpuscular Hgb Conc 34.2 g/dL (32-36); Mean Corpuscular Volume 91.2 fL (80-100); Mean Platelet Volume 11.1 fL (7.4-10.4); Monocytes # (auto) 0.76 K/uL (0.11-0.59); Monocytes % (auto) 9.9 %; Neutrophils # (auto) 5.89 K/uL (1.4-6.5); Neutrophils % (auto) 76.4 %; Platelet Count 167 K/uL (130-400); RDW Coefficient of Variation 12.7 % (11.5-14.5); RDW Standard Deviation 42.5 fL (36.4-46.3); Red Blood Count 4.45 M/uL (4.7-6.1)
[2021-05-03 08:14] LABS: Estimated Average Glucose 128 mg/dl; Hemoglobin A1C 6.1 % (4.5-5.6)
--- NOTE | 2021-05-03 08:16 | Hospitalist Progress Note ---
Date of Service May 03, 2021 Assessment & Plan (1) Angina pectoris, unspecified: Plan: Chest pressure occurring with activity- reports not consistent with his GERD symptoms -Drug-eluting stent to diagonal [id number] Scooter Zavala - ASA 81mg daily Plavix 75 daily - Metoprolol stopped with lower heart rate Note potential for adverse reactions with heparin- Heparin infusion- he endorses both father and son following Heparin administration- one with clots/and the other with bleeding. (2) HTN (hypertension): Plan: Poorly controlled as outpatient was a controlled here will discuss antihypertensive treatment with this patient consider carvedilol (3) Hypercholesterolemia: Plan: Lipid panel in the morning not on statin - He reports that he may have had a reaction to this in the past TC 179, LDL 109, HDL 47 (4) DM (diabetes mellitus), type 2: Plan: On Metformin at home - HGB A1C in the am - Transition to sliding scale while here- Aspart CF: 20 with Ration 1:15 (5) GERD without esophagitis: Plan: Continue Omeprazole (6) Spinal stenosis: Plan: Chronic follows with Dr. Morris - No acute issues (7) Sciatica of left side: Plan: Stable as above (8) Vertigo: Plan: Patient reports that he has had this ever since he was a kid - Can not lay flat without his hat on - Again unsure if any pathology here- (9) H/O prostate cancer: Plan: Treated with seeds 2002- follows with urology - patient doesn't endorse any LUTS Admission and Anticipated Discharge Date Admission Date: May 02, 2021 Subjective Pt is here with unstable angina, taken to laboratory development technician and has VIVIAN to D1 pt was seen post procedure with doing well T band in place Review of Systems Review of Systems: Mild distress and fatigue no headache, no visual changes no speech or swallowing issues no chest pain since admission no pressure or palpitations no shortness of breath, cough or wheezes no abdominal pain, nausea or vomiting, diarrhea or constipation no dysuria, hematuria or frequency no focal joint pain or swelling no back pain, CVA tenderness or radicular pain no bruising, bleeding or rashes no focal signs of weakness or numbness or altered sensation no complaints of anxiety or depression.. Physical Exam Physical Exam: The patient appeared well nourished and normally developed. Vital signs as documented. Head exam is normocephalic atraumatic Neck is without JVD, thyromegaly, or carotid bruits. Lungs are clear to auscultation, no focal loss of breath sounds Cardiac exam, Rhythm is regular.. No murmurs, rubs or gallops. Abdominal exam reveals normal bowel sounds, soft non tender, no masses Extremities are nonedematous and both pedal pulses are present Patient has good capillary refill and sensation distally to his right hand where his arterial access was Neurologic exam is alert and oriented, no focal loss of strength or sensation Skin is without bruises or rashes Psychologically is without concerns for anxiety or depression.. Results & Data Results & [facility] ([facility]) Vital Signs (Past 12 Hours) Vital Signs Temp Pulse Pulse Resp BP Pulse Ox 05/03/21 07:43 97.9 F 68 18 151/76 H 96 05/03/21 07:00 98.2 F 66 20 148/75 H 95 05/03/21 05:31 71 136/73 05/03/21 05:25 68 189/84 H 05/03/21 03:13 98.6 F 18 149/90 H 95 05/02/21 23:12 98.2 F 18 145/75 H 95 05/02/21 23:02 58 L PG Care Time/CCT Total # of Minutes Spent Total Time Spent with Patient: Total time spent is greater than 50% in coordination of care (as documented) at patient's floor/unit and/or counseling patient: Coding Level of Care Code 72083 Subseq Hosp Care Lvl 2 Diagnoses Angina pectoris, unspecified I20.9 HTN (hypertension) I10 Hypercholesterolemia E78.00 DM (diabetes mellitus), type 2 E11.9 Diabetes mellitus complication status: without complication Diabetes mellitus fci insulin use: without terminal clerk use GERD without esophagitis K21.9 Spinal stenosis M48.00 Spinal region: lumbar Sciatica of left side M54.32 Vertigo R42 H/O prostate cancer Z85.46 (1) DM (diabetes mellitus), type 2 Diabetes mellitus complication status: without complication Diabetes mellitus terminal clerk insulin use: without fci use Qualified Code(s): E11.9 - Type 2 diabetes mellitus without complications (2) Spinal stenosis Spinal region: lumbar
[2021-05-03] MEDS: INSULIN ASPART PER UNIT SC SCH ×4 (08:21→21:11)
[2021-05-03 08:23] LABS: BUN Creatinine Ratio 19.1 (10-20); Calcium 8.7 mg/dl (8.5-10.1); Chol HDL Ratio 3.9 (0-5); Creatinine Clr Calc Pharmacy 63.2 ml/min; Est GFR (African American) 87.8 ml/min; Est GFR (Non-African American) 75.7 ml/min; Magnesium 1.9 mg/dl (1.7-2.4); Potassium 3.8 mmol/L (3.5-5.1)
--- NOTE | 2021-05-03 09:49 | Cardiology Consultation ---
Date of Consultation May 03, 2021 Assessment & Plan (1) NSTEMI (non-ST elevated myocardial infarction): (2) Mitral regurgitation: 1. Non ST-elevation myocardial infarction: The patient is a very mild elevation is cardiac biomarkers. His symptoms are certainly concerning for angina. He has risk factors for coronary disease to include his gender, age, diabetes and possibly hypertension. His lipids are also suboptimal for someone with his risk factors. He is not currently on statin therapy. Based on his symptoms and elevated biomarkers I did recommend cardiac catheterization. I explained the risks, benefits and alternatives. He is willing to proceed. Will continue aspirin. He will need to start statin therapy. Additional recommendations following his angiography. 2. Mitral regurgitation: Mild. Normal LV systolic function and chamber dimension. This can be followed over time. Unlikely to be a significant issue in the course of his lifetime. History of Present Illness Reason for Consultation: Chest pain, elevated troponin Requesting Physician: Abigail Attending Physician: Joaquin Hayes MD History of Present Illness The patient is an 81-year-old gentleman without a known history of cardiac disease who presented with symptoms chest discomfort. Patient states that for a couple of months he is having some episodes central chest pressure. Initially he described this as breathing difficulty with a sense of chest tightness. The events tend to occur with activity or after eating. Initially they were very brief in duration and resolved with discontinuation of activity. More recently he has had symptoms that are lasting longer and yesterday he felt like his symptoms did not resolve despite discontinuing activity. As such she presented to the emergency room for evaluation. An EKG was normal. Initial cardiac biomarkers were normal. His symptoms appeared to resolve without specific intervention. He did not have much in the way of associated symptoms. Perhaps some mild shortness of breath. He did not describe dizziness or lightheadedness. He did not describe radiation of the discomfort. No sense of palpitation. He tends to be an active individual who is limited to some degree by left leg discomfort and discomfort in his feet. He normally can carry pails of [place] and chop wood. He has had symptoms with these activities and also with sweeping snow. Allergies Allergy/AdvReac Type Severity Reaction Status Date / Time Sulfa (Sulfonamide Allergy Intermediate Rash, Verified 05/02/21 14:51 Antibiotics) fever, sweat meloxicam AdvReac Intermediate swelling Verified 05/02/21 14:51 of limbs Home Medications Medication Instructions Recorded Confirmed Type cholecalciferol (vitamin D3) 10 400 unit PO BID 12/15/19 05/02/21 History mcg (400 unit) tablet (Vitamin D3) pantoprazole 20 mg tablet,delayed 20 mg PO DAILY 30 Days #30 tab 07/08/20 05/02/21 Rx release metformin 500 mg tablet,extended 500 mg PO BID #180 tab 04/24/21 05/02/21 Rx release 24 hr Patient History Medical History Arthritis of both ankles Chronic back pain Degenerative disc disease Diabetes mellitus, type 2 Difficult airway for intubation used glidescope to intubate patient while in [facility]. (~2009) advised to bring letter. GERD (gastroesophageal reflux disease) occasionally History of brachytherapy Osteoarthritis Prostate cancer Spinal stenosis Unsteady gait Vertigo Surgical History History of colonoscopy History of hernia repair left inguinal History of left cataract surgery History of prostate surgery cryo ablation [facility] History of tonsillectomy Family History Father Myocardial infarction Other No family history of adverse response to anesthesia Denies family history of Ovarian cancer Prostate cancer Breast cancer Colorectal cancer Social History Smoking Status: Never smoker Second Hand Exposure: No; Hx Alcohol Use: No Hx Substance Use: No Preferred Language: Gabonese Communication Ability: Effective Grade Teacher Required: No Beliefs That Will Affect Care: None marital status: Current Living Situation: Spouse Feels Safe at Home: Yes Dental Care, Regularly: Yes Seatbelt Use: always Assistive Devices: None Review of Systems Review of Systems: Per HPI. He had severe pain in the left leg previously that responded to physical therapy and analgesics. Continues to have some discomfort on both feet. No lower extremity edema. There was some reproducible component to his chest discomfort with palpation of the anterior chest. Physical Exam Physical Exam: The patient is alert and oriented. Mood and affect appeared normal. He answered all questions appropriately. HEENT: Pupils are equal and reactive to light and accommodation. Extraocular movements are intact. The sclerae are anicteric. Neuro: Cranial nerves intact Lungs: Clear to auscultation bilaterally. He has good air movement without use of accessory muscles. No rales wheezes or rhonchi. Cardiac: Heart demonstrates a regular rate and rhythm. Normal S1 and S2. No murmurs on examination. Pulses: The patient has palpable radial pulses bilaterally that are equal in intensity Extremities: There was no evidence of hypoperfusion. There is no cyanosis or clubbing. There is no edema. Skin: I did not appreciate any rashes on examination today. Results & Data ([facility]) Vital Signs (Past 12 Hours) Vital Signs Temp Pulse Pulse Resp BP Pulse Ox 05/03/21 08:00 94 H 05/03/21 07:43 36.6 C 68 18 151/76 H 96 05/03/21 07:00 36.8 C 66 20 148/75 H 95 05/03/21 05:31 71 136/73 05/03/21 05:25 68 189/84 H 05/03/21 03:13 37.0 C 18 149/90 H 95 05/02/21 23:12 36.8 C 18 145/75 H 95 05/02/21 23:02 58 L Laboratory Results Abnormal Lab Results 05/02/21 05/02/21 05/02/21 12:50 12:50 12:50 WBC 9.14 RBC 4.65 L Hgb 15.1 Hct 41.9 L MCV 90.1 MCH 32.5 MCHC 36.0 RDW Std Deviation 42.0 RDW Coeff of Nadiya 12.7 Plt Count 156 MPV 10.9 H Immature Gran % (Auto) 0.2 Neut % (Auto) 86.6 Lymph % (Auto) 7.4 Valley % (Auto) 5.4 Eos % (Auto) 0.3 Baso % (Auto) 0.1 Neut # (Auto) 7.91 H Lymph # (Auto) 0.68 L Valley # (Auto) 0.49 Eos # (Auto) 0.03 Baso # (Auto) 0.01 Immature Gran # (Auto) 0.02 PT 11.3 INR 1.1 APTT 27.3 PTT Ratio 1.0 Sodium 138 Potassium 3.9 Chloride 103 Carbon Dioxide 26 Anion Gap 9 BUN 22 Creatinine 0.96 Est Cr Clr Drug Dosing Not Reportable Est GFR ( Amer) 85.6 Est GFR (Non-Af Amer) 73.8 BUN/Creatinine Ratio 22.9 H Glucose 160 H POC Glucose Estimat Average Glucose Hemoglobin A1c Calcium 9.2 Magnesium 2.0 Total Bilirubin 0.7 AST 17 ALT 19 Alkaline Phosphatase 44 Troponin I < 0.03 Total Protein 7.3 Albumin 4.7 Globulin 2.6 Albumin/Globulin Ratio 1.8 Triglycerides Cholesterol LDL Cholesterol, Calc VLDL Cholesterol, Calc HDL Cholesterol Cholesterol/HDL Ratio Lipase 21 SARS-CoV-2, RNA, NAAT 05/02/21 05/02/21 05/02/21 12:50 19:03 20:15 WBC RBC Hgb Hct MCV MCH MCHC RDW Std Deviation RDW Coeff of Nadiya Plt Count MPV Immature Gran % (Auto) Neut % (Auto) Lymph % (Auto) Valley % (Auto) Eos % (Auto) Baso % (Auto) Neut # (Auto) Lymph # (Auto) Valley # (Auto) Eos # (Auto) Baso # (Auto) Immature Gran # (Auto) PT INR APTT PTT Ratio Sodium Potassium Chloride Carbon Dioxide Anion Gap BUN Creatinine Est Cr Clr Drug Dosing Est GFR ( Amer) Est GFR (Non-Af Amer) BUN/Creatinine Ratio Glucose POC Glucose 113 H Estimat Average Glucose Hemoglobin A1c Calcium Magnesium Total Bilirubin AST ALT Alkaline Phosphatase Troponin I 0.25 H* Total Protein Albumin Globulin Albumin/Globulin Ratio Triglycerides Cholesterol LDL Cholesterol, Calc VLDL Cholesterol, Calc HDL Cholesterol Cholesterol/HDL Ratio Lipase SARS-CoV-2, RNA, NAAT NEGATIVE 05/03/21 05/03/21 05/03/21 00:29 07:06 07:06 WBC 7.70 RBC 4.45 L Hgb 13.9 L Hct 40.6 L MCV 91.2 MCH 31.2 MCHC 34.2 RDW Std Deviation 42.5 RDW Coeff of Nadiya 12.7 Plt Count 167 MPV 11.1 H Immature Gran % (Auto) 0.3 Neut % (Auto) 76.4 Lymph % (Auto) 12.9 Valley % (Auto) 9.9 Eos % (Auto) 0.4 Baso % (Auto) 0.1 Neut # (Auto) 5.89 Lymph # (Auto) 0.99 L Valley # (Auto) 0.76 H Eos # (Auto) 0.03 Baso # (Auto) 0.01 Immature Gran # (Auto) 0.02 PT INR APTT PTT Ratio Sodium Potassium Chloride Carbon Dioxide Anion Gap BUN Creatinine Est Cr Clr Drug Dosing Est GFR ( Amer) Est GFR (Non-Af Amer) BUN/Creatinine Ratio Glucose POC Glucose Estimat Average Glucose Hemoglobin A1c Calcium Magnesium Total Bilirubin AST ALT Alkaline Phosphatase Troponin I 0.52 H* 0.40 H* Total Protein Albumin Globulin Albumin/Globulin Ratio Triglycerides Cholesterol LDL Cholesterol, Calc VLDL Cholesterol, Calc HDL Cholesterol Cholesterol/HDL Ratio Lipase SARS-CoV-2, RNA, NAAT 05/03/21 05/03/21 05/03/21 07:06 07:06 07:16 WBC RBC Hgb Hct MCV MCH MCHC RDW Std Deviation RDW Coeff of Nadiya Plt Count MPV Immature Gran % (Auto) Neut % (Auto) Lymph % (Auto) Valley % (Auto) Eos % (Auto) Baso % (Auto) Neut # (Auto) Lymph # (Auto) Valley # (Auto) Eos # (Auto) Baso # (Auto) Immature Gran # (Auto) PT INR APTT PTT Ratio Sodium 137 Potassium 3.8 Chloride 104 Carbon Dioxide 25 Anion Gap 8 BUN 18 Creatinine 0.94 Est Cr Clr Drug Dosing 63.2 Est GFR ( Amer) 87.8 Est GFR (Non-Af Amer) 75.7 BUN/Creatinine Ratio 19.1 Glucose 128 H POC Glucose 124 H Estimat Average Glucose 128 Hemoglobin A1c 6.1 H Calcium 8.7 Magnesium 1.9 Total Bilirubin AST ALT Alkaline Phosphatase Troponin I Total Protein Albumin Globulin Albumin/Globulin Ratio Triglycerides 84 Cholesterol 166 LDL Cholesterol, Calc 106 VLDL Cholesterol, Calc 17 HDL Cholesterol 43 Cholesterol/HDL Ratio 3.9 Lipase SARS-CoV-2, RNA, NAAT Diagnostic Findings Chest x-ray obtained the time of admission did not reveal any acute cardiopulmonary disease. Echocardiogram performed today revealed preserved LV systolic function without regional wall motion abnormalities. Mild mitral regurgitation. ECG Additional Comments: Normal sinus rhythm. No acute ST or T-wave changes per PG Care Time/CCT Total # of Minutes Spent Total Time Spent with Patient: Total time spent is greater than 50% in coordination of care (as documented) at patient's floor/unit and/or counseling patient: Coding Level of Care Code 37647 Initial Inpt Care Lvl 3 Diagnoses NSTEMI (non-ST elevated myocardial infarction) I21.4 Mitral regurgitation I34.0
--- NOTE | 2021-05-03 09:57 | XCELERA ---
[id number]
--- NOTE | 2021-05-03 11:29 | Pre Anesthesia Assessment ---
Date of Service May 03, 2021 Pre Sedation Assessment Vital Signs Temp Pulse Pulse Resp BP BP Pulse Ox 05/03/21 10:54 36.8 C 74 18 159/79 H 95 05/03/21 08:00 94 H 05/03/21 07:43 36.6 C 68 18 151/76 H 96 05/03/21 07:00 36.8 C 66 20 148/75 H 95 05/03/21 05:31 71 136/73 05/03/21 05:25 68 189/84 H 05/03/21 03:13 37.0 C 18 149/90 H 95 05/02/21 23:12 36.8 C 18 145/75 H 95 05/02/21 23:02 58 L 05/02/21 19:25 36.7 C 18 145/77 H 98 05/02/21 18:53 59 L 05/02/21 17:15 63 10 L 147/76 H 97 05/02/21 17:00 74 20 169/90 H 97 05/02/21 16:45 64 20 139/91 05/02/21 16:30 61 15 146/70 H 05/02/21 16:15 62 13 137/70 05/02/21 16:00 62 11 L 141/72 H 97 05/02/21 15:45 62 16 135/74 97 05/02/21 15:30 69 127/72 95 05/02/21 15:15 74 18 187/99 H 98 05/02/21 15:00 71 13 187/102 H 99 05/02/21 14:45 63 20 155/87 H 97 05/02/21 14:30 64 17 171/88 H 97 05/02/21 14:15 64 4 L 169/88 H 96 05/02/21 14:00 63 17 165/85 H 97 05/02/21 13:45 63 13 183/85 H 97 05/02/21 13:30 61 13 159/80 H 97 05/02/21 13:25 64 14 166/87 H 98 05/02/21 13:15 61 16 166/87 H 98 05/02/21 13:13 62 14 98 05/02/21 12:50 95 05/02/21 11:57 36.7 C 71 18 200/91 H 99 Cardiovascular + regular rate and + regular rhythm Respiratory + respiratory effort normal Pre-Sedation Airway Assessment Smoking Status: Never smoker Hx Sleep Apnea: No Hx Difficult Intubation: No Short, Thick Neck: No Thyromental Distance: > or= 3.5 Finger Breadths Oral Cavity: + WNL Mallampati Class: III ASA: ASA3 Procedure Planning Contraindications for Sedation: none Current Medications Reviewed: Yes Notes The planned sedation has been discussed with the patient. Informed Consent was obtained. I have identified the patient, determined the appropriateness of sedation and have assessed the patient immediately prior to the procedure. All medicine(s) and interventions are by my order.
[2021-05-03] MEDS ORDERED: fentaNYL citrate 100 MCG/2 ML VIAL ONE (11:39)
[2021-05-03] MEDS ORDERED: MIDAZOLAM HCL 1 MG/ML 2ML VIAL ONE ×2 (11:39→12:48)
[2021-05-03] MEDS ORDERED: niCARdipine HCL INJ 2.5 MG/ML 10 ML AMP ONE (11:39)
[2021-05-03] MEDS ORDERED: HEPARIN (PORCINE) 1000 UNIT/ML 10 ML (CATH LAB USE ONLY) ONE ×2 (11:39→12:50)
[2021-05-03] MEDS ORDERED: NITROGLYCERIN/D5W 100MCG/ML 20ML SYR ONE (11:42)
--- NOTE | 2021-05-03 12:21 | Cardiac Catheterization ---
[facility] Data: Core Piler Cardiac Status Clinical evaluation leading to the procedure CAD Presenation: Non STEMI Diagnostic Physicians Name: Scooter Armstrong MD Closure Device Recommendations: PCI without planned CABG Cardiac Cath Procedure Full Procedure Date May 03, 2021 Pre-Procedure Diagnosis Pre-Procedure Diagnosis: Non STEMI AUC Score AUC Score: 8 Post-Procedure Diagnosis Post-Procedure Diagnosis: Severe CAD Procedure(s) Performed Procedure(s) Performed: Coronary Angiography and Left Heart Cath Pediatrician Managing Partner Scooter Armstrong MD Inventory Control Manager(s) none Estimated Blood Loss Estimated Blood Loss: 7cc Medication(s) Medication(s): Fentanyl, Heparin, Lidocaine 1%, Nicardipine, Nitroglycerin and Versed Summary of Findings Procedure performed: Left heart catheterization, selective coronary angiography Staff window shade installer: Scooter Armstrong MD Indication: The patient is an 81-year-old gentleman who presented with exertional chest pain, extensive episodes of chest pain at rest and elevated cardiac biomarkers Procedure in detail: The patient was informed of the risks benefits and alternatives to the intended procedure, he understood such and wished to proceed. He was taken to the cardiac catheterization suite in a fasting state. Conscious sedation was administered per protocol and the patient was monitored electrocardiographically throughout today's procedure. The right wrist area was prepped and draped in usual sterile fashion. This area was anesthetized using subcutaneous administration of a lidocaine solution. The right radial artery was then accessed using Seldinger technique, and a arterial sheath was placed at this site over a guidewire. The sheath was used to facilitate passage of the cardiac catheter for coronary angiography and left heart catheterization. Coronary angiogram was then obtained in multiple orthogonal views prior to removal of the catheter. At the conclusion of the procedure the sheath was removed and hemostasis was achieved at the access site using manual pressure. The patient tolerated procedure well, there were no immediate complications. Equipment used: 5 [place] 4, 5 [place] JL 3.5 Findings: Coronary angiography Left main: Left main was normal in size and caliber and bifurcated normally into the left anterior sending left circumflex arteries no significant disease in this vessel Left anterior descending colon left anterior descending was a large transapical vessel. It was fairly tortuous. It produced a large first diagonal branch and some diminutive additional diagonal branches. There was a 99% stenosis in the mid portion of the first diagonal branch. There was disease in the mid LAD just distal to the first diagonal estimated at 50 to 60% stenosis. Left circumflex: Left circumflex was a nondominant vessel. It was fairly tortuous as well. There were luminal irregularities in the proximal portion at worst estimated at 20 to 30%. There was a large first OM branch and a medium OM 2, OM 3 and small OM 4. There was subtotal occlusion of the ostium of OM 2. Right coronary artery: The right coronary artery was a dominant vessel. It produced a large PDA branch. There was a approximately 50% stenosis in its midportion. There was some additional luminal irregularities but no obstructive lesions. Impression: Right dominant coronary system No evidence of aortic stenosis Normal intracardiac pressures Obstructive coronary disease involving D1 and OM2 Nonobstructive coronary disease involving the mid LAD and mid right coronary artery Hemodynamics Rest Ao:: 91/54 mmHg Final Ao: 124/72 mm LV: 98/-2 mmHg LVEDP is 0 mmHg Recommendations Recommendations: PCI without planned CABG Specimens Specimens: None Radiation Exposure (mGy) 1095 Contrast (mls) 50 Procedural Complication(s) None Disposition PCU I attest to the content of the Intraoperative Record and any orders documented therein. Any exceptions are noted below. [facility] Card Cath Procedure Codes Cardiac Catheterization Procedure 1: Cardiovascular Cath Procedures: 99103 Coronaries and LHC (+/-LV) Moderate Sedation Procedure 1: Sedation/Anesthesia: 25713 Mod Sedation by the same physician;Init15 Min Child Age 5 & Up Procedure 2: Sedation/Anesthesia: 35184 Mod Sedation by the same physician; Ea [id number] Minutes PG Care Time/CCT Total # of Minutes Spent Total Time Spent with Patient: Total time spent is greater than 50% in coordination of care (as documented) at patient's floor/unit and/or counseling patient:
[2021-05-03] MEDS ORDERED: CLOPIDOGREL BISULFATE 300 MG TAB ONE (13:01)
--- NOTE | 2021-05-03 13:08 | Post Anesthesia Assessment ---
Date of Service May 03, 2021 Post Sedation Assessment Vital Signs Temp Pulse Pulse Resp BP BP Pulse Ox 05/03/21 10:54 98.2 F 74 18 159/79 H 95 05/03/21 08:00 94 H 05/03/21 07:43 97.9 F 68 18 151/76 H 96 05/03/21 07:00 98.2 F 66 20 148/75 H 95 05/03/21 05:31 71 136/73 05/03/21 05:25 68 189/84 H 05/03/21 03:13 98.6 F 18 149/90 H 95 05/02/21 23:12 98.2 F 18 145/75 H 95 05/02/21 23:02 58 L 05/02/21 19:25 98.1 F 18 145/77 H 98 05/02/21 18:53 59 L 05/02/21 17:15 63 10 L 147/76 H 97 05/02/21 17:00 74 20 169/90 H 97 05/02/21 16:45 64 20 139/91 05/02/21 16:30 61 15 146/70 H 05/02/21 16:15 62 13 137/70 05/02/21 16:00 62 11 L 141/72 H 97 05/02/21 15:45 62 16 135/74 97 05/02/21 15:30 69 127/72 95 05/02/21 15:15 74 18 187/99 H 98 05/02/21 15:00 71 13 187/102 H 99 05/02/21 14:45 63 20 155/87 H 97 05/02/21 14:30 64 17 171/88 H 97 05/02/21 14:15 64 4 L 169/88 H 96 05/02/21 14:00 63 17 165/85 H 97 05/02/21 13:45 63 13 183/85 H 97 05/02/21 13:30 61 13 159/80 H 97 05/02/21 13:25 64 14 166/87 H 98 05/02/21 13:15 61 16 166/87 H 98 05/02/21 13:13 62 14 98 Recovery Score Activity: Moves 4 extremities Respiration: Deep Breath/Cough Circulation: +/-20% PreAnes Value Consciousness: Fully Awake Oxygen Saturation: O2 needed for >90% Discharge Sedation Level of Care: Fast Track Phase II Post Sedation Plan On clinical assessment, the patient appears to have tolerated the sedation without complications. Patient is recovering as anticipated. Patient will continue to be monitored by nursing and may be discharged when sedation discharge criteria are met per below protocol. Upon Completions of procedure up to 15 minutes continue every 5 minute vital signs and the P.A.R. score; then discharge to a Phase I or Fast Track to Phase II per the following guidelines: * Discharge Patient to appropriate Phase II area if PAR is 8 or greater or return to pre- procedure baseline. The post - procedure orders will be as directed. * If PAR score is less than 8 or not return to pre-procedure baseline then patient will follow Phase I monitoring till PAR is reached for Phase II. The Phase I may be done in procedure room or may call to secure a Phase I area. * If naloxone or flumazenil are used for reversal, hold in Phase I for continued monitoring from when last reversal dose was given for a minimum of 60 minutes or longer pending the nurse and/or physician discretion of patient condition before discharge to Phase II. Please call the Sedation Physician to re-evaluate and complete post-note for discharge to Phase II area. Do NOT discharge from procedure sedation or Phase 1 until post- sedation evaluation note is complete by procedure /sedation MD Sedation Discharge Instructions to be given to the patient at discharge to home.
--- NOTE | 2021-05-03 13:20 | Cardiac Catheterization ---
[facility] Data: Electromedical Service Engineer Cardiac Status Clinical evaluation leading to the procedure CAD Presenation: Non STEMI Anginal Classification: CCS IV Heart Failure: No Cardiogenic Shock within 24 Hours: No Cardiac Arrest within 24 Hours: No Imaging Studies Past 6 Months: Yes Stress Studies Past 6 Months: No Diagnostic Physicians Name: Scooter Zavala MD Status: Elective Closure Device Percutaneous Entry Location: Radial Closure Device: Radial Band Recommendations: PCI without planned CABG PCI Indication: PCI for high risk Non-YIFAN Lesion Segment Name: proximal D1 Culprit Artery: Yes Stenosis Prior to Rx (%): 98 Chronic Total Occlusion: No IVUS: No FFR: No Pre-Procedure TAMMI Flow: 2 Previously Treated Lesion: No Lesion Complexity: Non-High/Non-C Lesion Length (mm): 12 Thrombus Present: Yes Bifurcation Lesion: No Guidewire Across Lesion: Stenosis Post-Procedure (%): 0 Post-Procedure TAMMI Flow: 3 Devices(s) Deployed: Yes Yes Intraprocedure Events Significant Disection: No Perforation: No Cardiac Cath Procedure Full Procedure Date May 03, 2021 Pre-Procedure Diagnosis Pre-Procedure Diagnosis: Non STEMI AUC Score AUC Score: 8 Post-Procedure Diagnosis Post-Procedure Diagnosis: Severe CAD Procedure(s) Performed Procedure(s) Performed: Coronary Angiography and Drug Eluting Stent Fast Food Delivery Driver Scooter Zavala MD Picture Frame Maker(s) Andrew Estimated Blood Loss Estimated Blood Loss: 10 Medication(s) Medication(s): Clopidogrel, Fentanyl, Heparin, Nicardipine, Nitroglycerin and Versed Summary of Findings Indication: NSTEMI Access: 6 Fr right radial artery Catheters: EBU 3.5 guide Findings: For full details of patient's coronary angiography please see cath report dictated by Dr. Armstrong. Briefly, patient found to have a 98% stenosis in medium caliber proximal D1 with TAMMI II flow. Decision to proceed with PCI. -- PCI -- Antithrombotic therapy: Heparin, clopidogrel Procedure: Left main cannulated with EBU 3.5 guide Housekeeping Aide 50 wire passed across lesion into distal diagonal Proximal diagonal lesion predilated with 2.0 compliant balloon Dilated lesion stented with 2.25 x 15 mm Parveen drug-eluting stent Initially post stent placement had no-reflow IC vasodilators administered Stent post-dilated with 2.5 noncompliant balloon Additional IC IC vasodilators administered Post procedure TAMMI 3 flow, stent well expanded with minimal residual stenosis and no apparent cardiac complications. Arterial Closure: TR band Summary: 1. Successful PCI of proximal first diagonal with single drug-eluting stent (2.25 x 15 mm [place]; postdilated with 2.5 NC). Recommendations: To PCU for continued monitoring Loaded with clopidogrel 600 mg in Electromedical Service Engineer Continue dual-antiplatelet therapy for at least 1 year Continue statin, and ASCVD risk factor modification Consult cardiac Rehab Hemodynamics Rest Ao:: 137/70/101 Final Ao: 98/57/75 LV: 98/0 Recommendations Recommendations: PCI without planned CABG Specimens Specimens: None Radiation Exposure (mGy) 3284 Contrast (mls) 125 Fluids (cc crystalloids) Fluids (cc crystalloids): none Drains Drains: moderate Anesthesia moderate [id number] Procedural Complication(s) None Disposition PCU I attest to the content of the Intraoperative Record and any orders documented therein. Any exceptions are noted below. [facility] Card Cath Procedure Codes Moderate Sedation Procedure 1: Sedation/Anesthesia: 22231 Mod Sedation by the same physician; Ea Additio [id number] Minutes Stenting Procedure 1: Cardiovascular Stent Procedures: 58709 Perc transcatheter placement of intracoronary stent(s), with ang PG Care Time/CCT Total # of Minutes Spent Total Time Spent with Patient: Total time spent is greater than 50% in coordination of care (as documented) at patient's floor/unit and/or counseling patient:
--- NOTE | 2021-05-03 13:34 | Electrocardiogram Report ---
Test Reason : Blood Pressure : / mmHG Vent. Rate : 067 BPM Atrial Rate : 067 BPM P-R Int : 160 ms QRS Dur : 078 ms QT Int : 388 ms P-R-T Axes : -21 015 -02 degrees QTc Int : 409 ms Normal sinus rhythm with sinus arrhythmia Confirmed by Scooter Armstrong ([id number]) on 05/03/2021 1:34:18 PM Referred By: REFERRED SELF Confirmed By:Gt Armstrong
[2021-05-03] MEDS ORDERED: SODIUM CHLORIDE 0.9% 1000ML 1,000 ML IV SCH (14:00)
[2021-05-03] MEDS: carvediloL 3.125 MG TAB PO SCH (19:47)
[2021-05-04 07:33] LABS: Hematocrit (blood only) 39.8 % (42-52); Hemoglobin 13.8 g/dL (14.0-18.0); Mean Corpuscular Hemoglobin 31.4 pg (25-34); Mean Corpuscular Hgb Conc 34.7 g/dL (32-36); Mean Corpuscular Volume 90.5 fL (80-100); Mean Platelet Volume 11.3 fL (7.4-10.4); Platelet Count 156 K/uL (130-400); RDW Coefficient of Variation 12.9 % (11.5-14.5); RDW Standard Deviation 42.7 fL (36.4-46.3); White Blood Count 7.73 K/uL (4.8-10.8)
[2021-05-04 07:34] LABS: Basophils # (auto) 0.02 K/uL (0-0.2); Basophils % (auto) 0.3 %; Echinocytes 1+; Eosinophils # (auto) 0.03 K/uL (0-0.5); Eosinophils % (auto) 0.4 %; Immature Granulocytes # (auto) 0.02 K/uL (0.00-0.02); Immature Granulocytes % (auto) 0.3 %; Lymphocytes # (auto) 1.17 K/uL (1.2-3.4); Lymphocytes % (auto) 15.1 %; Monocytes # (auto) 0.87 K/uL (0.11-0.59); Monocytes % (auto) 11.3 %; Neutrophils # (auto) 5.62 K/uL (1.4-6.5); Neutrophils % (auto) 72.6 %
[2021-05-04 07:38] LABS: Calcium 8.5 mg/dl (8.5-10.1); Creatinine Clr Calc Pharmacy 55.9 ml/min; Est GFR (African American) 75.9 ml/min; Est GFR (Non-African American) 65.5 ml/min; Potassium 3.7 mmol/L (3.5-5.1)
[2021-05-04] MEDS: carvediloL 3.125 MG TAB PO SCH (08:33)
[2021-05-04] MEDS: PANTOprazole 40 MG TAB PO SCH (08:34)
[2021-05-04] MEDS: ASPIRIN 81 MG ECTAB PO SCH (08:34)
[2021-05-04] MEDS: INSULIN ASPART PER UNIT SC SCH (08:34)
[2021-05-04] MEDS ORDERED: CLOPIDOGREL BISULFATE 75 MG TAB PO SCH (09:00)
--- NOTE | 2021-05-04 16:58 | Electrocardiogram Report ---
Test Reason : Blood Pressure : / mmHG Vent. Rate : 066 BPM Atrial Rate : 066 BPM P-R Int : 166 ms QRS Dur : 090 ms QT Int : 406 ms P-R-T Axes : 000 032 061 degrees QTc Int : 425 ms Normal sinus rhythm When compared with ECG of 03-MAY-2021 05:17, T wave inversion no longer evident in Inferior leads Confirmed by Scooter Armstrong ([id number]) on 05/04/2021 4:58:25 PM Referred By: REFERRED SELF Confirmed By:Gt Armstrong
--- NOTE | 2021-05-05 15:33 | Discharge Summary ---
Date of Service May 04, 2021 Admission HPI Per Admitting Provider 81 YOM with past medical history of: Back pain, Vertigo, Arthritis, DM II, HLD, HTN, GERD, Prostate Cancer (adenocarcinoma- cryotherapy). Patient comes to the [facility] today for complaints of chest pressure. The "pressure" started this morning around 10-1030 while he was carrying a bucket of water outside to empty it and upon returning to the house he felt pressure in the center of his chest that radiated to his back between his shoulder blades. This was present upon entering the EMD and while walking into the EMD this pressure got slightly worse. At worst the pain was 5 and is now 2-3. Currently without radiation to the back. It was not associated with any other radiation, nausea/vomiting, sweating, or dyspnea. He had this occur one other time, during the last snow storm (Beginning of April) where he was sweeping the snow outside. This was the same pain in the center of his chest and that resolved after he went inside and rested. He may have this occur when he is going up steps, but he is unsure of this. He did note that he was able to go up and down a ladder this past week and remove some stuff from the roof/gutter without any chest pain or pressure, and he did carry the ladder back in the garage. In the EMD the patient had routine labs performed to include Troponin I and ECG/CXR. His Troponin I was negative and his ECG is negative for dynamic ST changes. He was given 324 mg ASA and had NTG paste placed to his chest. This decreased his pain to 2-3 but did not relieve it. On my evaluation- NTP removed and given 1 SL nitroglycerin. He remains significantly hypertensive and his BP by review is poorly controlled. Will admit patient to PCU telemetry, trend Troponin, give Metoprolol 12.5mg PO now and then BID. Check lipids in morning with HGB A1c, ECHO to evaluate for RWMA, Cardiology consult for risk stratification. Patient has not followed by Cardiology in the past- He did have a stress test completed in 2001 secondary to ? PVCs and HTN- Patient states this occurred af ter starting some medication, but he can't recall. Patient has never smoked, and has never drank. 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 He also endorses family history of his Father and Son both having and ADVERSE REACTION to Heparin- one with clots and dying and the other with bleeding out. They are unsure of any other family history of clotting or bleeding disorder. Will provide SCDs for VTE. Principal Diagnosis unstable angina nstemi VIVIAN to D1 of LAD Discharge Exam The patient appeared well Vital signs as documented. Lungs are clear to auscultation and appear unlabored Cardiac exam, Rhythm is regular.. No murmurs, rubs or gallops. Abdominal exam reveals normal bowel sounds, soft non tender, no masses Extremities are nonedematous and both pedal pulses are normal. Neurologic exam is alert and oriented, no focal loss of strength or sensation Skin is without bruises or rashes Psychologically is without concerns for anxiety or depression. Discharge Data Allergies Allergy/AdvReac Type Severity Reaction Status Date / Time Sulfa (Sulfonamide Allergy Intermediate Rash, Verified 05/02/21 14:51 Antibiotics) fever, sweat meloxicam AdvReac Intermediate swelling Verified 05/02/21 14:51 of limbs Consultations 05/02/21 13:55 ED Decision to Admit Stat 05/02/21 18:47 Consult Cardiology Routine 05/03/21 08:09 Consult Cardiology Routine 05/03/21 13:22 Consult Cardiac Rehabilitation Routine Procedures Performed Operation Date: 05/03/21 11:30 Actual Procedures s Cineradiography w/Routine Exam - Scooter Armstrong MD p Cath, Left with Cors and Vent - Scooter Armstrong MD p Drug Eluting Stent SGl Vessel - Holden Zavala MD Ordered Studies 05/03/21 09:43 CL Cath Imgs for PACS use only Routine Hospital Course (1) Angina pectoris, unspecified: Chest pressure occurring with activity- reports not consistent with his GERD symptoms -Drug-eluting stent to diagonal 1 placed 04/05/[address] Scooter Zavala - ASA 81mg daily Plavix 75 daily - Metoprolol stopped with lower heart rate patient tolerated lower doses of carvedilol Note potential for adverse reactions with heparin- Heparin infusion- he endorses both father and son following Heparin administration- one with clots/and the other with bleeding. (2) HTN (hypertension): Elevated low-dose carvedilol for beta-amaya use after NSTEMI (3) Hypercholesterolemia: Lipid panel in the morning not on statin - He reports that he may have had a reaction to this in the past TC 179, LDL 109, HDL 47 patient not interested in a statin at this time (4) DM (diabetes mellitus), type 2: On Metformin at home consoled not to start Metformin till the 25th - HGB A1C 6.1 - (5) GERD without esophagitis: Continue Omeprazole (6) Spinal stenosis: Chronic follows with Dr. Morris - No acute issues (7) Sciatica of left side: Stable as above (8) Vertigo: Patient reports that he has had this ever since he was a kid - Can not lay flat without his hat on - Again unsure if any pathology here- (9) H/O prostate cancer: Treated with seeds 2002- follows with urology - patient doesn't endorse any LUTS Total Time Total Time Spent Total Time Spent (In Minutes): It required greater than 30 minutes to prepare this patient for discharge Discharge Plan Discharge Items Patient Disposition: Home - Self-Care Reason For Visit: CHEST PAIN Discharge Diagnosis: unstable angina non St elevated GA stent placed in diagonal branch of left coronary artery Condition on Discharge: Good Activity: Per Instructions section Activity Comment: no inentional exercise until cleared by Dr Zavala or cardiology Non-emergency contact: Primary Care Provider and Carboy Filler Call non-emergency contact if: your symptoms worsen Follow-up/Referrals: Rosita Lind MD [Primary Care Provider] - 05/16/21 11:30 am Diet: Heart Healthy Addtl Attending Provider Instructions: Please continue to take asprin and plavix daily until told not to by Dr Zavala please do not start your metformin until morning of 05/05/21 ACTIVITY RECOMMENDATIONS: Excess manipulation of the wrist should be avoided for the next 24-48 hours. * No lifting over 2 pounds (approximately a 1/2 gallon of milk) with the utilized arm for 24 hours. * No strenuous activity such as bowling or tennis for 3 days. * Keep the site of the procedure covered with a bandage for 24 hours. *You may shower the day after the procedure. Do not take a tub bath or submerge the puncture site in water for the next 3 days. *Do not operate any motorized equipment for 3 days. SPECIAL CARE INSTRUCTIONS: The site may be slightly bruised and sore following your procedure. Should any of the following occur, contact the Dr. who performed your procedure. 1. Redness/inflammation, swelling, chills, or fever, or colored drainage at procedure site within 3-7 days after your procedure. 2. Coldness, discoloration, ongoing numbness, severe pain, or swelling. Expect mild tingling of hand and tenderness at the puncture site for up to three days. If this persists beyond three days, or other symptoms develop, notify the Dr. who performed your procedure. BLEEDING: If the procedure site on your wrist begins to bleed, do not panic 1. Place 1 or 2 fingers firmly just slightly above the insertion site to stop the bleeding. You may be able to feel your pulse as you hold pressure. 2. Lift your finger after 5 minutes to see if the bleeding has stopped. 3. Once the bleeding has stopped, gently wipe the wrist area clean with a bandage. * If the bleeding from your wrist does not stop after 10 minutes, or if there is a large amount of bleeding or spurting, call 911 (do not drive yourself to the hospital). SKIN IRRITATION: * You may experience some redness and/or swelling in the area where radiation was administered. If any skin irritation occurs, please contact your family physician. FOLLOW UP VISIT: Keep any scheduled doctor appointments. Pending Studies at Discharge: No Stand-Alone Forms: [facility] [employer] Smoking Cessation Medications and DC Order Prescriptions: New clopidogrel 75 mg Tablet 75 mg PO QAM Qty: 30 RF: 5 aspirin 81 mg Tablet,Delayed Release (Dr/Ec) 81 mg PO QAM Qty: 90 RF: 3 carvedilol 3.125 mg Tablet 3.125 mg PO BID Qty: 60 RF: 5 Continued metformin 500 mg tablet extended release 24 hr 500 mg PO BID Qty: 180 RF: 1 pantoprazole 20 mg tablet,delayed release (DR/EC) 20 mg PO DAILY 30 Days Qty: 30 RF: 3 cholecalciferol (vitamin D3) [Vitamin D3] 10 mcg (400 unit) Tablet 400 unit PO BID RF: 0 Discharge Orders: Discharge Order (Routine); Ordered 05/04/21 Ordered By: Joaquin Sierra/Other Patient Handouts: Coreg Oral Tablet 3.125 mg, Aspirin Oral Tablet 81 mg, Plavix Oral Tablet 75 mg, Managing Type 2 Diabetes, ED Cardiac Cath Post Bleed Admission Data Admit Date/Time: 05/02/21 15:32 Attending Provider: Joaquin Hayes Admit Provider: Susan London Primary Care Provider: Rosita Lind Other Providers: Susan London ; Scooter Armstrong Other Interventions: Discharge Summary Assessment (RN) Last Done: 05/04/21 09:25 Coding Level of Care Code D/C DAY MANAGEMENT >30 MINS Diagnoses Angina pectoris, unspecified I20.9 HTN (hypertension) I10 Hypercholesterolemia E78.00 DM (diabetes mellitus), type 2 E11.9 Diabetes mellitus penitentiary insulin use: without intermediate manager use Diabetes mellitus complication status: without complication GERD without esophagitis K21.9 Spinal stenosis M48.00 Spinal region: lumbar Sciatica of left side M54.32 Vertigo R42 H/O prostate cancer Z85.46
== END 2021-05-04 10:28 | disposition home or self-care (01) | DRG 247 ==
LOC: ED 11:50 → SUATTDRO 15:32 → 2S 15:32